=== PATIENT | male | born 1970 | race Caucasian/White ===

== ENCOUNTER 2017-07-26 11:33 | Emergency (ER) | payer MEDICAID ==
[~2017-07-26] VITALS: Ht 180.3 cm; Wt 100.6 kg
[2017-07-26 11:38] VITALS: BP 150/84
[2017-07-26] MEDS ORDERED: IBUPROFEN 200 MG TABLET PO ONE (12:00)
[2017-07-26] MEDS ORDERED: IBUPROFEN 200 MG TABLET ONE (12:09)
[2017-07-26 12:20] LABS: RAPID INFLUENZA A Negative (Negative); RAPID INFLUENZA B Negative (Negative)
== END 2017-07-26 13:11 | disposition home or self-care (01) ==
LOC: ED 13:00
DX: J20.9 Acute bronchitis, unspecified (principal)
CPT/HCPCS: 71046; 87400; 99285

== ENCOUNTER 2019-07-15 08:51 | Emergency (ER) | payer MEDICAID, OTHER ==
[~2019-07-15] VITALS: Ht 180.3 cm; Wt 107.2 kg
--- NOTE | 2019-07-15 09:08 | NUR ---
49 Y/O MALE PRESENTS TO ED WITH C/O FB IN LEFT EYE. PT STATES "TWO DAYS AGO I GOT SOMETHING IN MY EYE. 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 I FLUSHED IT OUT AND USUALLY THE NEXT DAY IT'S BETTER. BUT IT'S BEEN A FEW DAYS. I FELT SOMETHING MOVING AROUND AND WHEN I FLUSHED IT AGAIN IT HASN'T GONE AWAY." NADN. PT LEFT EYE IS RED AND IRRITATED.
[2019-07-15] MEDS ORDERED: FLUORESCEIN OPHTHALMIC 1 MG STRIP ONE (09:16)
[2019-07-15] MEDS ORDERED: PROPARACAINE OPHTH 0.5%, 15ML ONE (09:16)
--- NOTE | 2019-07-15 10:27 | NUR ---
BEDSIDE REPORT TO [facility].
--- NOTE | 2019-07-15 10:30 | NUR ---
PT REPORT FROM [facility]. PT CARE TO BE ASSUMED. PT SITTING ON CHAIR IN EXAM ROOM, AWAITING DC.
--- NOTE | 2019-07-15 11:01 | NUR ---
VISUAL ACCUITY COMPLTED: LT - VISION BLURRY, UNABLE TO READ FIRST LINE. RT: 20/70, BOTH 20/50.
[2019-07-15 11:02] VITALS: BP 128/82
== END 2019-07-15 11:04 | disposition home or self-care (01) ==
LOC: ED 09:12
DX: T15.02XA Foreign body in cornea, left eye, initial encounter (principal); W45.8XXA Other foreign body or object entering through skin, initial encounter; Y93.89 Activity, other specified; Y92.89 Other specified places as the place of occurrence of the external cause; Y99.8 Other external cause status
CPT/HCPCS: 65222; 99284